=== PATIENT | female | born 1990 | race Caucasian/White ===

== ENCOUNTER 2016-09-10 22:34 | Emergency (ER) | payer SELFPAY ==
[~2016-09-10] VITALS: Ht 165.1 cm; Wt 97.0 kg
[2016-09-11 01:06] VITALS: BP 129/84
[2016-09-11] MEDS ORDERED: ALBUTEROL (0.083%) 2.5MG/3ML NEB HHN STA (01:24)
[2016-09-11] MEDS ORDERED: PREDNISONE 20MG TABLET PO STA (01:24)
[2016-09-11] MEDS ORDERED: IPRATROPIUM BROMIDE (0.02%) 0.5MG/2.5ML NEB HHN STA (01:24)
[2016-09-11] MEDS ORDERED: IBUPROFEN 800MG TABLET PO ONE (01:30)
== END 2016-09-11 03:48 | disposition home or self-care (01) ==
LOC: ER 09-11 01:34
DX: J01.90 Acute sinusitis, unspecified (principal); J32.9 Chronic sinusitis, unspecified; F17.200 Nicotine dependence, unspecified, uncomplicated; Z98.890 Other specified postprocedural states
CPT/HCPCS: 71010; 81025; 94640; 99283; J7512; J7611